=== PATIENT | female | born 1980 | race Caucasian/White ===

== ENCOUNTER → 2023-06-22 06:42 | Outpatient (REF) | payer OTHER, SELFPAY | LOC: WDC 06:42 | PROVIDERS: ATTENDING PHYSICIAN Advanced Practice Midwife; FAMILY PHYSICIAN Family Medicine | DX: Z12.31 Encounter for screening mammogram for malignant neoplasm of breast (principal) | CPT/HCPCS: 77063; 77067 ==

== ENCOUNTER → 2024-06-29 08:28 | Outpatient (REF) | payer OTHER, SELFPAY | LOC: WDC 08:28 | PROVIDERS: ATTENDING PHYSICIAN Advanced Practice Midwife | DX: Z12.31 Encounter for screening mammogram for malignant neoplasm of breast (principal) | CPT/HCPCS: 77063; 77067 ==

== ENCOUNTER 2024-12-31 20:15 | Emergency (ER) | payer OTHER, SELFPAY ==
[2024-12-31 20:19] VITALS: BP 144/85
--- NOTE | 2024-12-31 22:58 | ED.GENMED ---
History of Present Illness
General
Chief Complaint: Head Injury
Time Seen by Provider: 12/31/24 22:58
History of Present Illness
History of Present Illness:
FOCUSED PAST MEDICAL HISTORY
- The patient has had pneumonia in the past
REVIEW OF OLD RECORDS
- I reviewed records, the patient was seen here with muscle pain in 2018
Note:
CHIEF COMPLAINT(S)
Head and neck pain following a head injury.
HISTORY OF PRESENT ILLNESS
The patient is a 44-year-old female who experienced a head injury while attempting to enter her car. She reported hitting her head on the door jamb, which resulted in tenderness at the site of impact and subsequent neck pain suggestive of a
whiplash-like injury. The patient described the force of the impact as significant and noted immediate discomfort. She reported photophobia and a sense of being in a fog, with nausea and episodes of light-headedness, particularly when transitioning
from a lying to a sitting position. The patient expressed feeling as though she could vomit, although she had not done so. She described the current day as the worst in terms of symptom severity. The CT scan of the brain was performed and was
negative for bleeding, which was explained to the patient as the main purpose of the scan.
CHRONIC MEDICAL CONDITIONS SIGNIFICANTLY AFFECTING CARE
Concussion
REVIEW OF SYSTEMS
- Neurological: Photophobia, persistent nausea, light-headedness, and sensations of being in a fog since the injury.
- Gastrointestinal: Nausea without vomiting; the patient feels she could vomit but has not.
- General/Constitutional: Feels unable to eat much since the incident.
PHYSICAL EXAM
General: Alert, no acute distress, however she keeps an eye hat/visor on as she is photophobic.
Skin: Warm, dry.
Head: Tender at the site of impact, no visible cut.
Neck: There is no midline C-spine tenderness however she does have some tenderness in the lower paraspinal musculature/upper trapezius region
Eye Ears, nose, mouth, and throat: Photophobia noted. Oral mucosa moist.
Cardiovascular: Normal peripheral perfusion, No edema.
Respiratory: Respirations are non-labored.
Gastrointestinal: Abdomen non-distended, no tenderness on palpation.
Back: Normal range of motion, Normal alignment.
Musculoskeletal: Neck tenderness on palpation. Normal range of motion elsewhere, normal strength.
Neurological: Alert and oriented to person, place, time, and situation, No focal neurological deficit observed. Coordination tests ([id number]-[id number]) are normal.
Psychiatric: Cooperative, appropriate mood & affect.
PLAN
1. Concussion management: Recommend rest and avoidance of activities that may exacerbate symptoms.
2. Nausea management: Offered prescription antiemetic (Ondansetron), to be sent to the patient�s preferred pharmacy.
3. Analgesia: Continue with Tylenol as needed for pain relief.
4. Dietary advice: Encourage adequate nutrition despite nausea; advised to try to eat small meals as tolerated.
5. Follow-up: Monitor symptoms for any changes or worsening.
DIFFERENTIAL DIAGNOSIS
The Differential Diagnosis includes, in no particular order and is not limited to:
1. Concussion
2. Cervical spine strain (whiplash)
3. Contusion
4. Migraine headache
5. Vestibular dysfunction
6. Epileptic seizure (post-traumatic)
7. Cerebral hemorrhage (ruled out by CT scan)
8. Vestibular neuritis
9. Cervicogenic headache
10. Post-traumatic stress disorder
Disposition:
SUMMARY OF ENCOUNTER
The patient, a 44-year-old female, presented to the emergency department with symptoms including photophobia, feeling as though in a fog, and ongoing headache after a recent head injury. She reported feeling worse today, prompting the visit for
evaluation. A CT scan of the brain was conducted to rule out any intracranial abnormalities, and the results showed no such issues.
PLAN
1. Concussion Management: Recommended rest and avoidance of activities that may trigger or worsen symptoms.
2. Nausea Management: Provided a prescription for ondansetron (Zofran) for persistent nausea.
3. Pain Management: Continue with acetaminophen (Tylenol) as needed for headache relief.
4. Dietary Advice: Encourage adequate nutrition despite nausea, advising small meals as tolerated.
5. Follow-Up: Patient to monitor symptoms and return if symptoms worsen or do not improve.
INDEPENDENT REVIEW OF LABS AND INTERPRETATION OF TESTS
My independent interpretation of the CT scan of the brain shows no intracranial abnormality.
PATIENT EDUCATION AND COUNSELING
The patient was advised on the signs of concussion and the importance of rest. She was informed about the findings of her CT scan, reassured that there was no bleeding or intracranial abnormalities, and discussed management strategies for her
symptoms.
FOLLOW-UP INSTRUCTIONS
The patient was advised to follow up with her primary care physician or return to the emergency department if symptoms worsen or persist.
MEDICATION RECONCILIATION
1. Ondansetron (Zofran) prescribed for nausea.
2. Acetaminophen (Tylenol) to be continued as needed for pain relief.
MEDICAL DECISION MAKING
- Number and Complexity of Problems Addressed: Chronic conditions affecting care include concussion. Differential diagnosis considered included concussion, cervical spine strain (whiplash), contusion, migraine headache, vestibular dysfunction,
epileptic seizure (post-traumatic), cerebral hemorrhage (ruled out by CT scan), vestibular neuritis, cervicogenic headache, post-traumatic stress disorder.
- Data:
- Category 1: Test reviewed includes CT scan of the brain.
- Category 2: My independent interpretation of the CT scan was consistent with no intracranial abnormality.
- Risk: Prescription drug management was implemented for nausea. Consideration of Admission/Observation: Escalation of care including admission/observation was considered given the complexity and risk of the patients presenting complaint and exam
findings. However, ultimately I feel the patient is safe for outpatient management with close follow-up. Reasoning: Work-up reassuring, does not reveal any acute life/organ-threatening processes, patients symptoms well controlled upon reevaluation,
reexamination is reassuring, vitals are stable, patient agreeable with discharge, reliable for follow-up.
DIAGNOSIS
1. Concussion - S06.0X0A
2. Post-traumatic headache - G44.309
Past History
Past History
ED Past Medical History: None
ED Past Surgical History: Cholecystectomy and
Social History
Tobacco: Non-smoker
Personal:
Living: with family
Employment: Employed
Phy Exam
Physical Exam
Physical Exam:
See HPI
Course
Orders/Labs/Results
Orders:
Orders
12/31/24 20:23
CT Head W/o Iv Contrast Urgent
Comment:
Reason For Exam: head injury, no thinners or LOC.
Vital Signs
Initial and Last Documented VS:
Initial Vital Signs
Temp Pulse Resp BP Pulse Ox
36.9 C 92 16 144/85 98
12/31/24 20:19 12/31/24 20:19 12/31/24 20:19 12/31/24 20:19 12/31/24 20:19
Last Documented Vital Signs
Temp Pulse Resp BP Pulse Ox
36.9 C 92 16 144/85 98
12/31/24 20:19 12/31/24 20:19 12/31/24 20:19 12/31/24 20:19 12/31/24 22:59
*Pulse Oximetry
SaO2: 98
Oxygen Mode of Delivery: Room air
Patient hypoxic: no
*Critical Care Note
Total Time (30-74mins, 75-104mins- exclusive of procedures): Not Applicable
ED Attending Note
-
Portions of this chart may have been created with voice recognition software.� Occasional wrong word or��sound alike� substitutions may have occurred due to the inherent limitations of voice recognition software.
Discharge Plan
Departure
Patient Disposition: Home (Routine Discharge)
Date of Disposition: 12/31/24
Time of Disposition: 23:08
Patient with high blood pressure during this ER visit?: Yes
Discharge Problem:
Concussion
Instructions: Concussion, Adult (DC), BLOOD PRESSURE
Prescriptions:
New
ondansetron HCl 4 mg tablet
4 mg PO Q8H PRN (Reason: nausea and vomiting) Qty: 14 0RF
No Action
Akua,paracasei,B.animalis 1 EACH capsule
1 ea PO DAILY
ondansetron HCl 4 MG tablet
4 mg PO TIDPRN PRN (Reason: nausea) Qty: 12 0RF
hydrocodone-acetaminophen [Vicodin] 1 EACH tablet
1 ea PO Q6HPRN PRN (Reason: pain) Qty: 12 0RF
Referrals:
Eliazar Price MD [Family Provider, Family Practice]
Activity Restrictions/Additional Instructions:
I sent a prescription for Zofran to your pharmacy. Return here if worse or other concerns. Take Tylenol for headache. CAT scan of the brain shows no bleeding. I suspect that you have a concussion.
Discharge Date and Time
Print Language: [place]
[2024-12-31 23:16] VITALS: BP 116/77
== END 2024-12-31 23:16 | disposition home or self-care (01) ==
LOC: EMR 20:15
PROVIDERS: EMERGENCY PHYSICIAN Emergency Medicine; FAMILY PHYSICIAN Family Medicine
DX: S06.0XAA Concussion with loss of consciousness status unknown, initial encounter (principal); G44.309 Post-traumatic headache, unspecified, not intractable; M54.2 Cervicalgia; V48.4XXA Person boarding or alighting a car injured in noncollision transport accident, initial encounter; Z90.49 Acquired absence of other specified parts of digestive tract
CPT/HCPCS: 99284; 70450